=== PATIENT | female | born 1995 | race Caucasian/White ===

== ENCOUNTER 2022-06-05 11:25 | Emergency (ER) | payer SELFPAY ==
[~2022-06-05] VITALS: Ht 162.6 cm; Wt 58.1 kg
--- NOTE | 2022-06-05 11:52 | NUR ---
at bedside for evaluation.
[2022-06-05] MEDS ORDERED: KETOROLAC TROMETHAMINE 15 MG INJ IM ONE (12:00)
[2022-06-05] MEDS ORDERED: LIDOCAINE 5% PATCH TD ONE ×2 (12:00→12:07)
[2022-06-05] MEDS ORDERED: METHOCARBAMOL 500 MG TABLET PO ONE (12:00)
[2022-06-05] MEDS ORDERED: METHOCARBAMOL 500 MG TABLET ONE (12:07)
[2022-06-05] MEDS ORDERED: KETOROLAC TROMETHAMINE 15 MG INJ ONE (12:07)
[2022-06-05] MEDS ORDERED: GABA600T12 (12:10)
[2022-06-05] MEDS ORDERED: PROP20TA7 (12:10)
[2022-06-05] MEDS ORDERED: HYDR-501 (12:10)
[2022-06-05] MEDS ORDERED: TRAZ-182 (12:10)
--- NOTE | 2022-06-05 12:23 | NUR ---
Pain medication given as ordered. Left rib pain noted per patient report.
[2022-06-05] MEDS ORDERED: METH-806 PO (13:09)
[2022-06-05 13:18] VITALS: BP 124/84
--- NOTE | 2022-06-05 13:19 | NUR ---
Patient discharged to home in stable condition. Written and verbal after care instructions given. Patient verbalizes understanding of instructions. Stressed follow up or return to ER for worsening s/s.
== END 2022-06-05 13:20 | disposition home or self-care (01) ==
LOC: ER 11:25
DX: R07.81 Pleurodynia (principal); Z88.0 Allergy status to penicillin; Z91.013 Allergy to seafood
CPT/HCPCS: 99283; 71101; 96372; J1885; A4663